=== PATIENT | male | born 1975 | race Two or more races ===

== ENCOUNTER 2018-03-09 07:56 | Emergency (ER) | payer BC, OTHER ==
--- NOTE | 2018-03-09 08:13 | UC ---
Bite Injury/Animal HPI - HPI Summary HPI Summary: This pt is a 42 y/o male presenting to [facility] c/o right third finger laceration s/ p dog bite 6 days ago. Pt reports his own dog bit his finger and sustained a laceration. Pt went to [facility] a couple of days ago for this and received a tetanus shot and was placed on Clindamycin. He refused an XR at [facility]. Today he presents for an XR because he is concerned about a fracture. Pt notes his right third finger is still painful and has some redness. - History of Current Complaint Stated Complaint: FINGER INJURY Time Seen by Provider: 03/09/18 07:59 Hx Obtained From: Patient Severity Initially: Mild Pain Intensity: 3 Pain Scale Used: 0-10 Numeric Onset/Duration: Lasting Days, Still Present Type of Bite: Pet - his dog Character: Abrasion/Laceration - laceration Aggravating Factor(s): Nothing Alleviating Factor(s): Nothing Associated Signs And Symptoms: Positive: Erythema. Negative: Fever, Drainage, Numbness/Tingling - Allergies/Home Medications Allergies/Adverse Reactions: Allergies Allergy/AdvReac Type Severity Reaction Status Date / Time iodine Allergy Hives Verified 03/09/18 08:54 dairy Allergy Hives Uncoded 03/09/18 08:54 Home Medications: Home Medications Cephalexin CAP* [Keflex CAP*] 450 mg PO TID 03/09/18 [History Confirmed 03/09/18 ] Sulfamethox/Trimethoprim SS* [Bactrim SS 400/80 TAB*] 1 tab PO BID 03/09/18 [ History Confirmed 03/09/18] PMH/Surg Hx/FS Hx/Imm Hx Other Endocrine History: DENIES: diabetes Other Cardiovascular History: DENIES: HTN Other History Of: Negative For: HIV, Hepatitis B, Hepatitis C, Anticoagulant Therapy - Surgical History Surgical History: Yes Surgery Procedure, Year, and Place: tonsills in 5th grade - Family History Known Family History: Negative: Cardiac Disease, Hypertension, Diabetes - Social History Alcohol Use: Occasionally Substance Use Type: Marijuana Smoking Status (MU): Former Smoker Review of Systems Constitutional: Negative Skin: Other - laceration on R third finger Eyes: Negative ENT: Negative Respiratory: Negative Cardiovascular: Negative Gastrointestinal: Negative Genitourinary: Negative Motor: Negative Neurovascular: Negative Musculoskeletal: Negative Neurological: Negative Psychological: Negative All Other Systems Reviewed And Are Negative: Yes Physical Exam - Summary Physical Exam Summary: VITAL SIGNS: Reviewed. GENERAL: Patient is a well-developed and nourished male. Patient is not in any acute respiratory distress. HEAD AND FACE: Normocephalic EYES: PERRLA, EOMI x 2. EARS: Hearing grossly intact. MOUTH: Oropharynx within normal limits. NECK: Supple, trachea is midline, no adenopathy, no JVD, no carotid bruit. CHEST: Symmetric, no tenderness at palpation LUNGS: Clear to auscultation bilaterally. No wheezing or crackles. CVS: Regular rate and rhythm, S1 and S2 present, no murmurs or gallops appreciated. ABDOMEN: Soft, non-tender. Bowel sounds are normal. No abdominal abnormal pulsations. EXTREMITIES: Full ROM in all major joints, no edema, no cyanosis or clubbing. RUE: right middle finger with small healing laceration and some erythema on the dorsal aspect of the distal digit. NEURO: Alert and oriented x 3. No acute neurological deficits. Speech is normal and follows commands. SKIN: Dry and warm Triage Information Reviewed: Yes Vital Signs Reviewed: Yes Diagnostics - Radiology Right third XR Xray Interpretation: No Acute Changes - IMPRESSION: Soft tissue swelling along the ulnar and dorsal aspects at the level of the distal phalanx. No conspicuous foreign body or significant subcutaneous emphysema. Negative for fracture or malalignment. Dr. Gautam has reviewed this radiology report. Radiology Interpretation Completed By: ED Physician - no fractures seen, Radiologist Bite Injury Course/Dx - Course Course Of Treatment: Pt is a 42 y/o male presenting to [facility] c/o right third finger laceration s/p dog bite 6 days ago. Pt reports his own dog bit his finger and sustained a laceration. Pt went to [facility] a couple of days ago for this and received a tetanus shot and was placed on antibiotics. He refused an XR at [facility]. Today he presents for an XR because he is concerned about a fracture. Pt notes his right third finger is still painful. Right third finger XR shows soft tissue swelling along the ulnar and dorsal aspects at the level of the distal phalanx. No conspicuous foreign body or significant subcutaneous emphysema. Negative for fracture or malalignment. I discussed the XR result with the patient. He was already placed on antibiotics, Clindamycin, at [address] [place] [address]. Pt was instructed to return to the urgent care or go to ER immediately if any of the symptoms return or worsens. Plan of care was discussed with the patient and pt understands and agrees. All questions were answered to patient satisfaction. There were no further complaints or concerns. Pt will be discharged to home with follow up from PCP. Pt is hemodynamically stable, alert and oriented x3. - Differential Dx/Diagnosis Provider Diagnoses: Animal bite Discharge - Sign-Out/Discharge Documenting (check all that apply): Patient Departure - Discharge - Discharge Plan Condition: Stable Disposition: HOME Patient Education Materials: Animal Bite (ED) Referrals: Cabrera Soto MD [Primary Care Provider] - Additional Instructions: FOLLOW UP WITH YOUR PRIMARY CARE PROVIDER WITHIN ONE WEEK FOR HIGH BLOOD PRESSURE NOTED TODAY. RETURN TO URGENT CARE OR THE ED FOR ANY WORSENING OR NEW SYMPTOMS. - Billing Disposition and Condition Condition: STABLE Disposition: Home
[2018-03-09 08:14] VITALS: BP 124/82
--- NOTE | 2018-03-09 08:59 | RAD ---
Indication: RIGHT middle finger pain following jamming injury and puncture. Comparison: No relevant prior exams available on the [facility] for comparison. Technique: 3 views RIGHT middle finger. REPORT AND IMPRESSION: #. Soft tissue swelling along the ulnar and dorsal aspects at the level of the distal phalanx. No conspicuous foreign body or significant subcutaneous emphysema. Negative for fracture or malalignment.
== END 2018-03-09 09:01 | disposition home or self-care (01) ==
LOC: UCEAST 07:56
DX: S61.212A Laceration without foreign body of right middle finger without damage to nail, initial encounter (principal); W54.0XXA Bitten by dog, initial encounter; Y93.9 Activity, unspecified; Y92.9 Unspecified place or not applicable; Z88.3 Allergy status to other anti-infective agents; Z91.011 Allergy to milk products; Z87.891 Personal history of nicotine dependence
CPT/HCPCS: 73140; 99211; G0463

== ENCOUNTER 2018-11-19 21:30 | Emergency (ER) | payer BC ==
--- OUTSIDE RECORDS SUMMARY | 2018-11-19 21:49 | XMS REPORT | Continuity of Care Document ---
:1975 External Reference #:[id number] Author Name Karissa Pineda Care Team Providers Name Role Phone Cabrera Morillo MD Primary Care Physician Unavailable Payers Date Identification Numbers Payment Provider Subscriber Policy Number: [id number] [employer] Esequiel Padilla PayID: [id number] [address] [address] [place] [address] Expires: 2017 Policy Number: [id number] [employer] Esequiel Padilla Group Number: [id number] [address] PayID: [id number] [place] [address] Advance Directives Description No Information Available Problems Description No Information Family History Description No Information Available Social History Type Date Description Comments Sex Unknown Smokeless Tobacco Never Used Smokeless Tobacco ETOH Use Occasionally consumes alcohol Tobacco Use Start: Unknown End: Patient is a former former smoker, last Unknown smoker smoked cigs 2001 Smoking Status Reviewed: 10/30/18 Patient is a former former smoker, last smoker smoked cigs 2001 Exercise Exercises regularly Type/Frequency Allergies, Adverse Reactions, Alerts Description No Known Drug Allergies Medications Description No Active Medications Immunizations Description No Information Available Vital Signs Date Vital Result Comment 10/30/2018 9:09am Height 68 inches 5'8" Weight 159.25 lb Heart Rate 60 /min BP Systolic Sitting 138 mmHg BP Diastolic Sitting 80 mmHg Respiratory Rate 14 /min Body Temperature 97.2 F BMI (Body Mass Index) 24.2 kg/m2 03/11/2014 2:08pm Height 68 inches 5'8" Weight 155.00 lb Heart Rate 73 /min BMI (Body Mass Index) 23.6 kg/m2 02/20/2014 1:47pm Height 68 inches 5'8" Weight 155.00 lb Heart Rate 78 /min BP Systolic 119 mmHg BP Diastolic 83 mmHg Pain Level 1 BMI (Body Mass Index) 23.6 kg/m2 02/04/2014 8:25am Height 68 inches 5'8" Weight 155.00 lb Heart Rate 72 /min BP Systolic 113 mmHg BP Diastolic 72 mmHg BMI (Body Mass Index) 23.6 kg/m2 Results Description No Information Available Procedures Date Code Description Status 05/22/2018 50659 Stress Test Completed 03/11/2014 53850 Rad Exam; Elbow, Limited Completed 02/20/2014 17321 Rad Exam; Elbow, Limited Completed 02/04/2014 53696 Closed Treatment Radial Head Or Neck FX W/O Manipulation Completed Encounters Description No Information Available Plan of Treatment Future Appointment(s):11/15/2018 1:00 pm - Maryjane Naik MD [facility]10/30/2018 - Reji Anderson M.D.R53.83 Other fatigue
--- NOTE | 2018-11-19 22:32 | ED ---
Laceration/Wound HPI - HPI Summary HPI Summary: 43 year old male presents with nasal laceration today. He is states that he was doing head stand and ended up bumping his glasses into his nose. Area is actively bleeding. Tetanus up-to-date. Denies any nosebleeding. No headache. No loss consciousness. No nausea and vomiting. - History of Current Complaint Stated Complaint: I GOT A BASH ON MY NOSE PER PT Time Seen by Provider: 11/19/18 22:01 Pain Intensity: 2 - Allergy/Home Medications Allergies/Adverse Reactions: Allergies Allergy/AdvReac Type Severity Reaction Status Date / Time iodine Allergy Hives Verified 11/19/18 21:46 dairy Allergy Hives Uncoded 11/19/18 21:46 Home Medications: Home Medications NK [No Home Medications Reported] 11/19/18 [History Confirmed 11/19/18] PMH/Surg Hx/FS Hx/Imm Hx Endocrine/Hematology History: Denies: Hx Anticoagulant Therapy, Hx Diabetes, Hx Thyroid Disease Cardiovascular History: Denies: Hx Congestive Heart Failure, Hx Deep Vein Thrombosis, Hx Hypertension , Hx Myocardial Infarction, Hx Pacemaker/ICD Respiratory History: Denies: Hx Asthma, Hx Chronic Obstructive Pulmonary Disease (COPD), Hx Lung Cancer, Hx Pneumonia, Hx Pulmonary Embolism GI History: Denies: Hx Gall Bladder Disease, Hx Gastrointestinal Bleed, Hx Ulcer, Hx Urosepsis History: Denies: Hx Kidney Stones, Hx Renal Disease Sensory History: Denies: Hx Hearing Aid Neurological History: Denies: Hx Dementia, Hx Migraine, Hx Seizures, Hx Transient Ischemic Attacks (TIA) Psychiatric History: Denies: Hx Anxiety, Hx Depression, Hx Panic Disorder, Hx Schizophrenia, Hx Bipolar Disorder - Surgical History Surgery Procedure, Year, and Place: tonsills in 5th grade Infectious Disease History: No Infectious Disease History: Denies: Hx Hepatitis, Hx Human Immunodeficiency Virus (HIV), History Other Infectious Disease, Traveled Outside the [place] in Last 30 Days - Family History Known Family History: Negative: Cardiac Disease, Hypertension, Diabetes - Social History Alcohol Use: Occasionally Substance Use Type: Reports: Marijuana Hx Tobacco Use: No Smoking Status (MU): Former Smoker Review of Systems Negative: Fever Negative: Chest Pain Negative: Shortness Of Breath Positive: Other - nasal laceration Negative: Headache All Other Systems Reviewed And Are Negative: Yes Physical Exam Triage Information Reviewed: Yes Vital Signs On Initial Exam: Initial Vitals Temp Pulse Resp BP Pulse Ox 98.2 F 58 16 122/88 100 11/19/18 21:44 11/19/18 21:44 11/19/18 21:44 11/19/18 21:44 11/19/18 21:44 Vital Signs Reviewed: Yes Appearance: Positive: Well-Appearing Skin: Positive: Warm, Dry, Other - 2cm superficial triangular laceration to bridge of nose Head/Face: Positive: Normal Head/Face Inspection Eyes: Positive: Normal, EOMI, CHERRIE, Conjunctiva Clear ENT: Positive: Normal ENT inspection, Pharynx normal, TMs normal Respiratory/Lung Sounds: Positive: Clear to Auscultation, Breath Sounds Present Cardiovascular: Positive: Normal, RRR Musculoskeletal: Positive: Normal Neurological: Positive: Sensory/Motor Intact, Alert, Oriented to Person Place, Time, CN Intact II-III Psychiatric: Positive: Normal - Roberto Carlos Coma Scale Best Eye Response: 4 - Spontaneous Best Motor Response: 6 - Obeys Commands Best Verbal Response: 5 - Oriented Coma Scale Total: 15 Procedures - Laceration/Wound Repair 1 Location: face Description: Irregular Length, Depth and Shape: 2cm superficial Irrigated w/ Saline (ccs): 100 Closure: Skin Adhesive, SteriStrips Diagnostics - Vital Signs Vital Signs Temp Pulse Resp BP Pulse Ox 11/19/18 21:44 98.2 F 58 16 122/88 100 - Laboratory Lab Statement: Any lab studies that have been ordered have been reviewed, and results considered in the medical decision making process. Laceration Repair Course/Dx - Course Course Of Treatment: 43 year old male presents with nasal laceration today. He is states that he was doing head stand and ended up bumping his glasses into his nose. Area is actively bleeding. Tetanus up-to-date. Denies any nosebleeding. No headache. No loss consciousness. No nausea and vomiting. On exam has superficial laceration to the bridge of the nose. Nares appears midline. Normal neuro exam. Clean area and place glue. Told to place ice on the area. Patient understands agrees plan. - Differential Dx Differental Diagnoses: Abrasion, Avulsion, Laceration - Clinical Impression Provider Diagnoses: Facial laceration Discharge - Sign-Out/Discharge Documenting (check all that apply): Patient Departure Patient Received Moderate/Deep Sedation with Procedure: No - Discharge Plan Condition: Good Disposition: HOME Patient Education Materials: Skin Adhesive Care (ED) Referrals: Cabrera Soto MD [Primary Care Provider] - Additional Instructions: Place ice on area Take Tylenol or ibuprofen for pain as needed every 6 hours Keep dry for 24 hours Glue will fall off on own Avoid scrubbing area Return to ED if develop any signs of infection or any new or worsening symptoms - Billing Disposition and Condition Condition: GOOD Disposition: Home
[2018-11-19 22:47] VITALS: BP 130/75
== END 2018-11-19 22:47 | disposition home or self-care (01) ==
LOC: ED 21:30
DX: S01.21XA Laceration without foreign body of nose, initial encounter (principal); W26.8XXA Contact with other sharp object(s), not elsewhere classified, initial encounter; Y92.9 Unspecified place or not applicable; Z91.011 Allergy to milk products; Z91.048 Other nonmedicinal substance allergy status; Z87.891 Personal history of nicotine dependence
CPT/HCPCS: 12011; 99281

== ENCOUNTER 2019-05-14 12:33 | Emergency (ER) | payer BC ==
--- OUTSIDE RECORDS SUMMARY | 2019-05-14 13:23 | XMS REPORT | Continuity of Care Document ---
:1975 External Reference #:[id number] Author Name Cabrera Morillo MD Address [address] [place] [address] Care Team Providers Name Role Phone Cabrera Soto MD - Family Care Team Information [employer] Medicine Other Specialty Care Team Information [employer] Maker Unavailable Krish CHAVARRIA,Placido Care Team Information [employer] Maker [phone] Ernesto Anderson MD - Infectious Care Team Information [employer] [phone] Disease Problems Active Problems Provider Date Disorder of nasal cavity Cabrera Soto M.D. Onset: 06/06/2011 Anxiety state Cabrera Soto M.D. Onset: 10/12/2011 Palpitations Cabrera Soto M.D. Onset: 04/13/2012 Malaise and fatigue Po Waggoner M.D. Onset: 08/30/2012 Acute bronchitis Cabrera Soto M.D. Onset: 04/07/2014 Eruption Cabrera Soto M.D. Onset: 10/22/2014 Acute pharyngitis Cabrera Soto M.D. Onset: 02/06/2015 Abdominal pain Cabrera Soto M.D. Onset: 06/10/2016 Diarrhea Cabrera Soto M.D. Onset: 06/10/2016 Social History Type Date Description Comments Sex Unknown Tobacco Use Reviewed: 12/05/18 Nonsmoker Smoking Status Reviewed: 12/05/18 Nonsmoker Allergies, Adverse Reactions, Alerts Active Allergies Reaction Severity Comments Date NKDA 06/06/2011 Dairy Sweliing Forehead 04/13/2012 Medications Active Medications SIG Qnty Indications Ordering Provider Date Cefuroxime Axetil 1 by mouth 14tabs L03.115 Cabrera VelardeJanae 05/13/2019 250mg twice a day MD Yisel Tablets Multivitamin Adult 1 by mouth Unknown every day Tablets History Medications No Active Medications Unknown 01/10/2019 - 01/10/2019 Valacyclovir HCL take 1 tablet 14tabs B00.9 Cabrera VelardeJanae 01/10/2019 - 500mg by mouth twice MD Yisel 05/13/2019 Tablets a day Medications Administered in Office Medication SIG Qnty Indications Ordering Provider Date TB Intradermal Test Nurse, Nurse 05/13/1999 Injection TB Intradermal Test Nurse, Nurse 05/11/1999 Injection Immunizations CPT Code Status Date Vaccine Lot # [id number] Given 12/05/2018 Tetanus And Diptheria Adult Preservative Free [id number] >[id number] Given 06/19/2018 Influenza Vac, Quadrivalent, Slit Virus, Im [id number] Given 05/17/2007 Tdap Tetanus, W Pertussis [id number] Given 05/11/1999 Hepatitis B Immunization, adult dosage, for intramuscular use [id number] Given 05/11/1999 Hep A Adlt Immunization Vital Signs Date Vital Result Comment 05/13/2019 2:07pm BP Systolic 126 mmHg BP Diastolic 60 mmHg Heart Rate 86 /min Body Temperature 98.1 F Height 69 inches 5'9" Weight 158.00 lb BMI (Body Mass Index) 23.3 kg/m2 01/10/2019 8:50am BP Systolic 110 mmHg BP Diastolic 64 mmHg Heart Rate 68 /min Body Temperature 97.9 F Respiratory Rate 16 /min Height 69 inches 5'9" Weight 152.00 lb BMI (Body Mass Index) 22.4 kg/m2 Results Test Date Facility Test Result H/L Range Note Comprehensive Metabolic 12/06/2018 [facility]) Sodium 139 mEq/L 134-149 Prof Potassium 4.8 mEq/L 3.6-5.5 Chloride 101 mEq/L 94-112 Carbon Dioxide 27 mEq/L 21-32 Glucose 88 mg/dL 70-105 BUN 14 mg/dL 6-26 Creatinine 0.8 mg/dL 0.6-1.4 BUN/Creat Ratio 17.5 CALC 8.0-36.0 Calcium 9.3 mg/dL 8.6-10.2 Total Protein 6.7 g/dL 6.4-8.3 Albumin 4.6 g/dL 3.8-5.5 Globulin 2.1 g/dL 2.0-4.8 A/G Ratio 2.2 CALC 0.6-2.3 Alk. Phosphatase 41 U/L 22-95 Alt (SGPT) 14 U/L 7-35 Ast (Sgot) 19 U/L 5-34 Total Bilirubin 0.5 mg/dL 0.2-1.3 GFR Non- >60 ml/min/1.73m^ >=60 GFR >60 ml/min/1.73m^ >=60 Lipid Profile 12/06/2018 Roland Osullivan([facility]) Cholesterol 116 mg/dL Low 120-200 1 Triglycerides 67 mg/dL 30-200 HDL Cholesterol 49 mg/dL 30-70 LDL (Calculated) 54 CALC 0-129 VLDL Cholesterol 13 mg/dL 0-50 HDL Risk Factor 2.4 CALC 0.0-4.4 CBC Electronic Fma 12/06/2018 Roland Osullivan(a) WBC 5.3 x10^3/UL 4.0- 10.0 RBC 4.91 x10^6/UL 3.93-6.00 HGB 14.6 g/dL 12.0-17.0 HCT 45 % 35-50 MCV 91.2 fL 80.0-95.0 MCH 29.7 pg 25.6-32.2 MCHC 32.6 g/dL 32.2-36.0 RDW-CV 12.8 % 11.6-14.4 PLT 278 x10^3/UL 163-400 MPV 10.5 fL 9.4-12.4 Alan# 3.17 x10^3/UL 1.56-6.13 Lymph# 1.61 x10^3/UL 1.18-3.74 Geary# 0.33 x10^3/UL 0.24-0.82 Eos # 0.1 x10^3/UL 0.0-0.5 Baso # 0.03 x10^3/UL 0.01-0.08 Alan% 60.3 % 34.0-70.0 Lymph % 30.7 % 20.0-52.0 Geary% 6.3 % 5.0-12.0 Eos% 1.5 % 0.7-7.0 Baso% 0.6 % 0.1-1.2 1 RESULTS VERIFIED BY REPEAT ANALYSIS Procedures Description No Information Available Medical Devices Description No Information Available Encounters Type Date Location Provider Dx Diagnosis Office Visit 01/10/2019 Main Office Cabrera Daniel B00.9 Herpesviral infection, 8:40a MD Yisel unspecified Office Visit 12/05/2018 Main Office Cabrera Soto Z23 Encounter for 3:20p Sean immunization Z00.00 Encntr for general adult medical exam w/o abnormal findings Assessments Date Code Description Provider 05/13/2019 L03.115 Cellulitis of right lower limb Cabrera Morillo MD 01/10/2019 B00.9 Herpesviral infection, unspecified Cabrera Morillo MD 12/06/2018 Z00.00 Encntr for general adult medical exam w/o Cabrera Soto M.D. abnormal findings 12/05/2018 Z23 Encounter for immunization Cabrera Soto M.D. 12/05/2018 Z00.00 Encounter for general adult medical Cabrera Soto M.D. examination without abno Plan of Treatment 05/13/2019 - Cabrera Morillo MDL03.115 Cellulitis of right lower limbNew Medication:Cefuroxime Axetil 250 mg - 1 by mouth twice a dayAllComments: Medication Management Patient Understands medications he's taking? Yes No Are there Barriersto Adherence? Yes No Has the patient been asked about herbal supplements and therapies, and OTC meds? Yes No Functional Status Description No Information Available Mental Status Description No Information Available Referrals Description No Information Available
[2019-05-14 14:46] LABS: ABS Basophils 0.1 10^3/ul (0-0.2); ABS Eosinophils 0.2 10^3/ul (0-0.6); ABS Lymphocytes 1.2 10^3/ul (1.0-4.8); ABS Monocytes 0.5 10^3/ul (0-0.8); ABS Neutrophils 7.9 10^3/ul (1.5-7.7); Hematocrit 46 % (42-52); Hemoglobin 15.3 g/dL (14.0-18.0); Lymphocyte % 11.9 %; Mean Corpuscular HGB Conc 34 g/dL (31-36); Mean Corpuscular Hemoglobin 30 pg (27-31); Mean Corpuscular Volume 88 fL (80-94); Mean Platelet Volume 8.4 fL (7.4-10.4); Nucleated Red Blood Cells % 0.1; Platelet Count 251 10^3/uL (150-450); Red Blood Count 5.15 10^6 /uL (4.18-5.48); Red Cell Distribution Width 14 % (10-15); White Blood Count 9.8 10^3/uL (3.5-10.8)
[2019-05-14 14:57] LABS: INR 0.93 (0.82-1.09)
[2019-05-14 15:23] LABS: Albumin 4.4 g/dL (3.2-5.2); Albumin/Globulin Ratio 1.6 (1-3); BUN/Creatinine Ratio 19.1 (8-20); C Reactive Protein 67.62 mg/L (<8.01); Calcium 9.3 mg/dL (8.6-10.3); EGFR African American 112.9 (>60); EGFR Non-African American 93.3 (>60); Globulin 2.8 g/dL (2-4); Potassium 4.3 mmol/L (3.5-5.0); Total Bilirubin 0.4 mg/dL (0.2-1.0); Total Protein 7.2 g/dL (6.4-8.9)
[2019-05-14] MEDS ORDERED: Ketorolac INJ* 30 MG/ML 1 ML VIAL IM ONE (15:43)
--- NOTE | 2019-05-14 15:45 | ED ---
Lower Extremity - HPI Summary HPI Summary: Pt is a 43 y/o M presenting to the ED with a chief complaint of R toe pain. He states that in his sleep on the night of 05/10/19, he felt a sharp pain in the middle of the night, and the next morning he saw something that looked like a pimple. He sterilized a needle at home and drained it himself, but it got worse. He went to [facility], was given Bactrim, then saw Dr. Cunningham on 05/13/19 because it was not getting better. The pain did not improve, but the erythema and edema has very slightly improved on his foot. He had a slight subjective fever of 99.5 on the night of 05/10/19, and that he has been taking only Tylenol at home. Elevating his foot worsens the pain. Medications reviewed. Allergies noted. - History of Current Complaint Chief Complaint: EDExtremityLower Stated Complaint: LEFT FOOT INFECTION PER PT Time Seen by Provider: 05/14/19 15:27 Hx Obtained From: Patient Mechanism Of Injury: Unknown Onset of Pain: Days Onset/Duration: Still Present Severity Initially: Mild Severity Currently: Moderate Pain Intensity: 6 Pain Scale Used: 0-10 Numeric Timing: Constant, Lasting Days Location: Is Discrete @ - R foot Associated Signs And Symptoms: Positive: Swelling, Redness Aggravating Factor(s): Other - elevation Alleviating Factor(s): Nothing Able to Bear Weight: Yes - Allergies/Home Medications Allergies/Adverse Reactions: Allergies Allergy/AdvReac Type Severity Reaction Status Date / Time iodine Allergy Hives Verified 11/19/18 21:46 dairy Allergy Hives Uncoded 11/19/18 21:46 PMH/Surg Hx/FS Hx/Imm Hx Previously Healthy: Yes Endocrine/Hematology History: Denies: Hx Anticoagulant Therapy, Hx Diabetes, Hx Thyroid Disease Cardiovascular History: Denies: Hx Congestive Heart Failure, Hx Deep Vein Thrombosis, Hx Hypertension , Hx Myocardial Infarction, Hx Pacemaker/ICD Respiratory History: Denies: Hx Asthma, Hx Chronic Obstructive Pulmonary Disease (COPD), Hx Lung Cancer, Hx Pneumonia, Hx Pulmonary Embolism GI History: Denies: Hx Gall Bladder Disease, Hx Gastrointestinal Bleed, Hx Ulcer, Hx Urosepsis History: Denies: Hx Kidney Stones, Hx Renal Disease Sensory History: Denies: Hx Hearing Aid Neurological History: Denies: Hx Dementia, Hx Migraine, Hx Seizures, Hx Transient Ischemic Attacks (TIA) Psychiatric History: Denies: Hx Anxiety, Hx Depression, Hx Panic Disorder, Hx Schizophrenia, Hx Bipolar Disorder - Surgical History Surgery Procedure, Year, and Place: tonsills in 5th grade Infectious Disease History: No Infectious Disease History: Denies: Hx Hepatitis, Hx Human Immunodeficiency Virus (HIV), History Other Infectious Disease, Traveled Outside the [place] in Last 30 Days - Family History Known Family History: Negative: Cardiac Disease, Hypertension, Diabetes - Social History Alcohol Use: Occasionally Hx Substance Use: Yes Substance Use Type: Reports: Marijuana Hx Tobacco Use: No Smoking Status (MU): Former Smoker Review of Systems Positive: Fever Positive: Arthralgia, Edema Positive: Other - erythema All Other Systems Reviewed And Are Negative: Yes Physical Exam - Summary Physical Exam Summary: Constitutional: Well-developed, Well-nourished, Alert. (-) Distressed Skin: Warm, Dry HENT: Normocephalic; Atraumatic Eyes: Conjunctiva normal Neck: Musculoskeletal ROM normal neck. (-) JVD, (-) Stridor, (-) Tracheal deviation Cardio: Rhythm regular, rate normal, Heart sounds normal; Intact distal pulses; The pedal pulses are 2+ and symmetric. Radial pulses are 2+ and symmetric. (-) Murmur Pulmonary/Chest wall: Effort normal. (-) Respiratory distress, (-) Wheezes, (-) Rales Abd: Soft, (-) tenderness, (-) Distension, (-) Guarding, (-) Rebound Musculoskeletal: (-) Edema Lymph: (-) Cervical adenopathy Neuro: Alert, Oriented x3 Psych: Mood and affect Normal Triage Information Reviewed: Yes Vital Signs On Initial Exam: Initial Vitals Temp Pulse Resp BP Pulse Ox 98.1 F 79 18 145/87 98 05/14/19 12:39 05/14/19 12:39 05/14/19 12:39 05/14/19 12:39 05/14/19 12:39 Vital Signs Reviewed: Yes Diagnostics - Vital Signs Vital Signs Temp Pulse Resp BP Pulse Ox 05/14/19 14:06 99.5 F 71 18 124/77 98 05/14/19 12:39 98.1 F 79 18 145/87 98 - Laboratory Lab Results: Lab Results 05/14/19 05/14/19 05/14/19 Range/Units 14:38 14:38 14:38 WBC 9.8 (3.5-10.8) 10^3/uL RBC 5.15 (4.18-5.48) 10^6 /uL Hgb 15.3 (14.0-18.0) g/dL Hct 46 (42-52) % MCV 88 (80-94) fL MCH 30 (27-31) pg MCHC 34 (31-36) g/dL RDW 14 (10-15) % Plt Count 251 (150-450) 10^3/uL MPV 8.4 (7.4-10.4) fL Neut % (Auto) 80.1 % Lymph % (Auto) 11.9 % [place] % (Auto) 5.2 % Eos % (Auto) 2.0 % Baso % (Auto) 0.8 % Absolute Neuts (auto) 7.9 H (1.5-7.7) 10^3/ul Absolute Lymphs (auto) 1.2 (1.0-4.8) 10^3/ul Absolute Monos (auto) 0.5 (0-0.8) 10^3/ul Absolute Eos (auto) 0.2 (0-0.6) 10^3/ul Absolute Basos (auto) 0.1 (0-0.2) 10^3/ul Absolute Nucleated RBC 0.0 10^3/ul Nucleated RBC % 0.1 INR (Anticoag Therapy) 0.93 (0.82-1.09) Sodium 137 (135-145) mmol/L Potassium 4.3 (3.5-5.0) mmol/L Chloride 103 (101-111) mmol/L Carbon Dioxide 29 (22-32) mmol/L Anion Gap 5 (2-11) mmol/L BUN 17 (6-24) mg/dL Creatinine 0.89 (0.67-1.17) mg/dL Est GFR ( Amer) 112.9 (>60) Est GFR (Non-Af Amer) 93.3 (>60) BUN/Creatinine Ratio 19.1 (8-20) Glucose 86 (70-100) mg/dL Lactic Acid (0.5-2.0) mmol/L Calcium 9.3 (8.6-10.3) mg/dL Total Bilirubin 0.40 (0.2-1.0) mg/dL AST 19 (13-39) U/L ALT 18 (7-52) U/L Alkaline Phosphatase 45 (34-104) U/L C-Reactive Protein 67.62 H (<8.01) mg/L Total Protein 7.2 (6.4-8.9) g/dL Albumin 4.4 (3.2-5.2) g/dL Globulin 2.8 (2-4) g/dL Albumin/Globulin Ratio 1.6 (1-3) 05/14/19 Range/Units 14:38 WBC (3.5-10.8) 10^3/uL RBC (4.18-5.48) 10^6 /uL Hgb (14.0-18.0) g/dL Hct (42-52) % MCV (80-94) fL MCH (27-31) pg MCHC (31-36) g/dL RDW (10-15) % Plt Count (150-450) 10^3/uL MPV (7.4-10.4) fL Neut % (Auto) % Lymph % (Auto) % [place] % (Auto) % Eos % (Auto) % Baso % (Auto) % Absolute Neuts (auto) (1.5-7.7) 10^3/ul Absolute Lymphs (auto) (1.0-4.8) 10^3/ul Absolute Monos (auto) (0-0.8) 10^3/ul Absolute Eos (auto) (0-0.6) 10^3/ul Absolute Basos (auto) (0-0.2) 10^3/ul Absolute Nucleated RBC 10^3/ul Nucleated RBC % INR (Anticoag Therapy) (0.82-1.09) Sodium (135-145) mmol/L Potassium (3.5-5.0) mmol/L Chloride (101-111) mmol/L Carbon Dioxide (22-32) mmol/L Anion Gap (2-11) mmol/L BUN (6-24) mg/dL Creatinine (0.67-1.17) mg/dL Est GFR ( Amer) (>60) Est GFR (Non-Af Amer) (>60) BUN/Creatinine Ratio (8-20) Glucose (70-100) mg/dL Lactic Acid 0.7 (0.5-2.0) mmol/L Calcium (8.6-10.3) mg/dL Total Bilirubin (0.2-1.0) mg/dL AST (13-39) U/L ALT (7-52) U/L Alkaline Phosphatase (34-104) U/L C-Reactive Protein (<8.01) mg/L Total Protein (6.4-8.9) g/dL Albumin (3.2-5.2) g/dL Globulin (2-4) g/dL Albumin/Globulin Ratio (1-3) Result Diagrams: 05/14/19 14:38 05/14/19 14:38 Lab Statement: Any lab studies that have been ordered have been reviewed, and results considered in the medical decision making process. - Radiology Toe XR Radiology Interpretation Completed By: Radiologist Summary of Radiographic Findings: 1. 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 2. NO APPRECIABLE EROSION OR PERIOSTEAL REACTION ALONG THE SECOND DIGIT. PLAIN RADIOGRAPH FINDINGS OF OSTEOMYELITIS ARE RELATIVELY LATE FINDINGS. IF THERE IS PERSISTENT CLINICAL CONCERN FOR OSTEOMYELITIS, RECOMMEND CORRELATION WITH FOLLOWUP IMAGING, THREE-PHASE BONE SCANNING, WHITE BLOOD CELL SCAN, AND/OR MRI OF THE AFFECTED REGION. ED physician has reviewed this report. Lower Extremity Course/Dx - Course Course Of Treatment: Patient is here with cellulitis over his second toe on the right. Patient has full range motion that toe with no pain with active or passive range of motion. This makes septic arthritis highly unlikely. Patient likely had a small pimple that he popped at home that cause worsening infection. Patient is on cefuroxime for strep coverage but was encouraged to restart his Bactrim for staph coverage. Patient was also underdosing his pain medication and was discharged on a proper pain regimen. - Diagnoses Provider Diagnoses: Cellulitis of toe, right Discharge ED - Sign-Out/Discharge Documenting (check all that apply): Patient Departure Patient Received Moderate/Deep Sedation with Procedure: No - Discharge Plan Condition: Stable Disposition: HOME Patient Education Materials: Cellulitis (ED) Referrals: Cabrera Soto MD [Primary Care Provider] - Additional Instructions: Restart your Bactrim, keep taking your Ceftriaxone. For pain management, try taking 3 Ibuprofen every 6 hours and 3 Tylenol every 6 hours, alternating the medications every three hours. (Ex: Ibuprofen at 1:00, Tylenol at 4:00, ibuprofen at 7:00, etc.) Follow up with your primary care provider within the next 2-3 days. Return to the emergency department with any new or worsening symptoms, including high fever, chills, or inability to move your toe. - Billing Disposition and Condition Condition: STABLE Disposition: Home - Attestation Statements Document Initiated by Yaneli: Yes Documenting Scribe: Kelsey Reynoso Provider For Whom Yaneli is Documenting (Include Credential): lAcides Cannon MD. Scribe Attestation: Kelsey Plascencia, scribed for Alcides Cannon MD. on 05/14/19 at 1837. Scribe Documentation Reviewed: Yes Provider Attestation: The documentation as recorded by the scribe, Kelsey Reynoso accurately reflects the service I personally performed and the decisions made by , Alcides Cannon MD. Status of Scribe Document: Viewed
[2019-05-14 16:19] VITALS: BP 127/68
== END 2019-05-14 16:23 | disposition home or self-care (01) ==
LOC: ED 12:33
DX: L03.031 Cellulitis of right toe (principal); Z88.3 Allergy status to other anti-infective agents; Z91.011 Allergy to milk products; Z87.891 Personal history of nicotine dependence
CPT/HCPCS: 36415; 80053; 83605; 85025; 85610; 86140; 87040; 96372; 99282; J1885